=== PATIENT | male | born 1990 | race Caucasian/White ===

== ENCOUNTER 2016-06-16 05:16 | Emergency (ER) | payer MEDICAID, OTHER ==
[~2016-06-16] VITALS: Ht 172.7 cm; Wt 68.0 kg
[2016-06-16] MEDS ORDERED: KETOROLAC 60MG/2ML VIAL IM ONE (06:45)
[2016-06-16 06:47] VITALS: BP 129/53
== END 2016-06-16 07:22 | disposition home or self-care (01) ==
LOC: ER 05:33
DX: B02.9 Zoster without complications (principal); Z88.8 Allergy status to other drugs, medicaments and biological substances; F17.200 Nicotine dependence, unspecified, uncomplicated; F12.10 Cannabis abuse, uncomplicated; K08.89 Other specified disorders of teeth and supporting structures; Z76.0 Encounter for issue of repeat prescription
CPT/HCPCS: 96372; 99283; J1885